=== PATIENT | male | born 1945 | race Caucasian/White ===

== ENCOUNTER 2019-03-27 07:29 | Day surgery (SDC) | payer OTHER, SELFPAY ==
[2019-03-27] MEDS: PROPARACAINE 0.5% OPHTH SOL 2 DROPS EYE-OP (08:49)
[2019-03-27] MEDS: CATARACT EYE COMPOUND (10 DROPS/SYRINGE) 3 DROPS EYE-OP ×3 (08:51→09:15)
[2019-03-27 09:01] VITALS: BP 153/84; PULSE 72; RESP 16; TEMP 36.2; O2SAT 98; BMI 40.3
--- NOTE | 2019-03-27 09:22 | PM.PREOP ---
Pre-operative Note Interval Note History & Physical reviewed/Exam performed by Physician: No Changes to H&P: No
--- NOTE | 2019-03-27 09:22 | PM.OP.1 ---
Operative Date/Time/Diagnoses Pre-op diagnosis: Nuclear cataract right eye Procedure & Clinicians Procedure: Cataract Surgery Same procedure as scheduled: Yes Surgeon: Epifanio Matthews Anesthesia Type: MAC +/- and Sedation Operative Notes Procedure in detail: Patient brought to the operating suite. Tetracaine drops placed in the right eye. Patient was prepped and draped in sterile manner. Wire lid speculum was placed in the eye. Betadine drops were placed on the eye. This was irrigated. Lidocaine jelly was placed on the eye. A paracentesis port was created with a side-port blade. 0.1 mL 1% preservative free lidocaine was injected into the anterior chamber. The anterior chamber was deepened with viscoelastic. 2.6 mm keratome was used to create a temporal clear corneal incision. Cystotome and Utrata forceps were used to create continuous tear capsulorrhexis. Balanced salt solution was used to hydro dissect the nucleus. The phacoemulsification handpiece was inserted and the nucleus was removed using the stop and chop technique. The irrigation aspiration handpiece was inserted and the remaining cortex was removed. Anterior chamber was deepened with viscoelastic. An Gaines ZCB00 intraocular lens with a power of 20.0 was injected into the capsular bag. Irrigation aspiration handpiece was inserted and the remaining viscoelastic was removed. Incision was hydrated with balanced salt solution and found to be leak free with pressure with Weck-Clare sponges. 0.1 mL Vigamox injected anterior chamber. 0.3 mL Kenalog 10 mg was injected subconjunctivally. Lid speculum was removed. The patient left the operating room in excellent condition. Complications: none Condition: stable Disposition: same day surgery
--- NOTE | 2019-03-27 09:31 | SUR.OPER ---
Supine on eye stretcher, head on extension cradle secured with tape. Arms tucked at sides with blanket. Pillow under knees.
[2019-03-27] MEDS: PHENYLEPHRINE/LIDOCAINE VIAL (OR) 0.2 ML EYE-OP (09:33)
[2019-03-27] MEDS: MOXIFLOXACIN OPHTH DROPS 3 ML BOTTLE 2 DROPS INJ (09:34)
[2019-03-27] MEDS: LIDOCAINE JELLY 2% 5 ML 1 APPLIC TOP (09:34)
[2019-03-27] MEDS: CHONDROIDTIN/SOD HYALURONATE 1.05 ML SYRINGE INTRAOCULA (09:34)
[2019-03-27] MEDS: BALANCED SALT IRRIG SOLN NO.2 500 ML, EPINEPHrine 1 MG IRR (09:35)
[2019-03-27] MEDS: TETRACAINE 0.5% OPHTH DROPS 4 ML 2 DROPS EYE-OP (09:35)
[2019-03-27 09:52] VITALS: BP 148/75; PULSE 68; RESP 18; TEMP 36.5; O2SAT 97
[2019-03-27 09:57] VITALS: BP 148/75; PULSE 68; RESP 18; TEMP 36.5; O2SAT 97
== END 2019-03-27 10:10 ==
PROVIDERS: PCP Internal Medicine; Visit Provider Ophthalmology
DX: H25.11 Age-related nuclear cataract, right eye (principal); I10 Essential (primary) hypertension
CPT/HCPCS: J0171